=== PATIENT | male | born 1965 | race Caucasian/White ===

== ENCOUNTER 2022-04-30 09:01 | Outpatient (CLI) | payer OTHER | END 2022-04-30 09:02 | disposition home or self-care (01) | LOC: RAD-FRANK 09:01 | PROVIDERS: ATTEND Nurse Practitioner Family | DX: M54.2 Cervicalgia (principal); M47.812 Spondylosis without myelopathy or radiculopathy, cervical region | CPT/HCPCS: 72040 ==

== ENCOUNTER 2022-05-14 08:19 | Outpatient (CLI) | payer OTHER | END 2022-05-14 08:20 | disposition home or self-care (01) | LOC: RAD-FRANK 08:19 | PROVIDERS: ATTEND Nurse Practitioner Family | DX: R10.2 Pelvic and perineal pain (principal) | CPT/HCPCS: 72170 ==